=== PATIENT | male | born 1985 | race Caucasian/White ===

== ENCOUNTER 2019-11-07 16:16 | Emergency (ER) | payer SELFPAY ==
[2019-11-07 16:16] VITALS: BP 145/73; PULSE 109; RESP 18; TEMP 36.7; O2SAT 99; BMI 21.6
--- NOTE | 2019-11-07 16:30 | ED.DCSUM_ITS ---
History of Present Illness Chief Complaint: Dental Informant: Patient Onset: Days - 3 days Context: Gradual Onset Current Severity: Moderate Maximum Severity: Moderate Narrative: Patient presents with 3 days of left lower dental pain and 2 days of facial swelling. He states he believes his wisdom tooth is infected. No drainage or sour taste in his mouth. No fever or chills. Past Medical History - Allergies and Home Meds Allergies/Adverse Reactions: Allergies No Known Allergies Allergy (Verified 11/07/19 16:18) Primary Care Physician: Care Physician,No Primary [Primary Care Provider] - Past Medical History: None Smoking Status: Current every day smoker Review of Systems General: Denies: Chills, Fever Eyes: Denies: Visual changes - bilaterally ENT: Reports: - - Dental pain and facial swelling. Denies: Bilateral ear pain Cardiovascular: Denies: Chest pain Respiratory: Denies: Dyspnea, Cough Gastrointestinal: Denies: Abdominal pain, Nausea, Vomiting, Diarrhea Musculoskeletal: Denies: Extremity Pain Skin: Denies: Rash Neurological: Denies: Headache Hematologic: Denies: Easy bruising, Easy bleeding Allergy: Denies: Uticaria Physical Exam Vital Signs/Narrative: Vital Signs Temp Pulse Resp BP Pulse Ox 11/07/19 16:16 98.1 F 109 H 18 145/73 H 99 Inital Vital Signs reviewed: Yes General: Well nourished, Well developed Head: Normocephalic ENT: Moist mucous membranes, - - Mild left facial swelling along the mandible. No submandibular fullness. Intraoral examination reveals multiple dental caries along the left mandibular surface. He does have limited opening of his mouth, but no true trismus. Posterior pharynx exam is normal. Cardiovascular: Regular rate, Regular rhythm, No murmurs Respiratory: No distress, CTA bilaterally Abdomen: Soft, Nontender Skin: Normal color Neurological: Alert, Oriented x3 Psychological: Normal affect Diagnostic/Tx/Re-eval - Medical Decision Making Patient be treated with naproxen as well as Pen-Vee K. He is given a dental re ferral list. He is to follow-up with a dentist this week. ED Disposition - Plan for ED Patient: Disposition: Home or Assisted Living Diagnosis: Dental abscess Instructions: ED Abscess Antibiotic Treatment Only Prescriptions: Naproxen [Naprosyn] 500 mg PO BID PRN PRN #20 tab PRN Reason: Pain Score 4-10/10 Transmission Status: Pending to [facility] Penicillin V Potassium 500 mg PO 4X/DAY #40 tab Transmission Status: Pending to [facility] Additional Instructions: Dental list provided.
[2019-11-07] MEDS: Naproxen 500 MG Tablet PO (16:47)
[2019-11-07] MEDS: Penicillin Vk 250 MG Tablet 500 MG PO (16:47)
== END 2019-11-07 16:50 | disposition home or self-care (01) ==
LOC: ED 16:50
PROVIDERS: Emergency Provider Emergency Medicine
DX: K04.7 Periapical abscess without sinus (principal); F17.200 Nicotine dependence, unspecified, uncomplicated
CPT/HCPCS: 99283

== ENCOUNTER 2021-10-11 18:38 | Emergency (ER) | payer BC, SELFPAY ==
[2021-10-11 18:39] VITALS: BP 136/79; PULSE 82; RESP 14; TEMP 35.8; O2SAT 95; BMI 23.0
--- NOTE | 2021-10-11 18:58 | EX.ED.GUMALE ---
HPI History of Present Illness Chief Complaint: Male Pain/Injury Informant: patient Pain Onset: Weeks (2) Context: Gradual Onset Timing: Continuous Current Severity: Moderate Maximum Severity: Moderate Worsened by: nothing Relieved by: nothing but hasn't tried any medications Related History Sexually: Inactive (But was in the past) STD: No (No known history) Narrative Narrative: Patient states he has had spontaneous onset of left testicular/scrotal pain that started 2 weeks ago. Today the pain has been worse. He denies any injury. He denies any sexual intercourse recently. He does not have a PCP. He states several days ago he had a scant amount of a creamy urethral discharge but not since and he has had no issues urinating or hematuria. No fevers or chills or abdominal pain. He does not wear underwear so unknown if scrotal support has been helping his discomfort or not. PFSH PFSH Medical History no medical history no medical history Home Medications doxycycline monohydrate 100 mg PO BID #14 capsule 10/11/21 [Rx Last Taken Unknown] naproxen 500 mg PO BID PRN #14 tab 10/11/21 [Rx Last Taken Unknown] Allergy/AdvReac Type Severity Reaction Status Date / Time No Known Allergies Allergy Verified 10/11/21 18:39 Social History Smoking Status: Current every day smoker tobacco type: cigarettes ROS ROS ED Constitutional Constitutional ED: Denies chills or fever(s) Eyes Eyes: Denies change in vision or diplopia ENT ENT ED: Denies rhinorrhea or sore throat Cardiovascular Cardiovascular: Denies chest pain or palpitations Respiratory/Chest Respiratory/Chest: Denies cough or dyspnea Gastrointestinal Gastrointestinal: Denies abdominal pain, diarrhea, nausea or vomiting Genitourinary Genitourinary ED: Reports as per HPI and scrotal pain; Denies dysuria, hematuria, scrotal swelling or testicular swelling Musculoskeletal Musculoskeletal: Denies back pain or neck pain Integumentary Denies abscess or rash Neurologic Neurologic: Denies headache(s), paresthesias or weakness Psychiatric Psychiatric: Denies anxiety or suicidal thoughts EXAM Physical Exam Const Vital Signs: 10/11/21 18:39 Temperature 96.5 F L Temperature Source Temporal Pulse Rate 82 Respiratory Rate 14 Blood Pressure 136/79 H Blood Pressure Mean 98 Pulse Ox 95 Oxygen Delivery Method Room Air Positive well nourished and well developed General Appearance ED: well developed and NAD HEENT Reports moist mucous membranes normocephalic and atraumatic Eyes PERRL and EOMs intact bilaterally Neck full ROM and supple Resp normal respiratory effort and clear to auscultation bilaterally Cardio regular rate, regular rhythm and no murmurs GI non-tender and non-distended Auscultation: normoactive bowel sounds Palpation: soft Narrative: Scrotum normal appearing, no testicular tenderness or edema or deformity. Tender at the epididymis on the left, posterior aspect of the testicle, and proximal to this without any palpable varicocele. No palpable mass or hernia. Penis normal. No inguinal lymphadenopathy. Testes: Negative for testicular swelling Back/Spine no CVA tenderness General Back: other FROM Extremity normal to inspection General Extremety ED: Negative for edema, pulses abnormal or tenderness General Extremity: Negative for edema or pulses abnormal Neuro oriented x3, CN's II-XII intact bilaterally and no sensory deficits noted Sensorium / Orientation: awake and alert Motor Exam: strength 5/5 throughout Skin no rashes or lesions noted and no wounds MDM MDM MDM Narrative Medical decision making narrative: I suspect patient has epididymitis and will treat him empirically for it with doxycycline for 1 week. He was given initial doses of that and NSAID here. I sent off test for GC and chlamydia, the only reason is because he could have an indolent asymptomatic infection from a prior exposure and that could be causing this now. I think it is less likely. Discussed following up with urology if he does not get better since he does not have a PCP. His testicle is not edematous nor tender and I do not think he has to be ultrasound for torsion at this time since I think that is very unlikely. Discharge Plan Triage Chief Complaint: Male Pain/Injury ED Provider: Stevo Lange Dx/Rx/DC Orders Clinical Impression: Epididymitis, left Instructions: ED Epididymitis Prescriptions: New doxycycline monohydrate 100 MG capsule 100 mg PO BID Qty: 14 RF: 0 naproxen 500 MG tablet 500 mg PO BID PRN Qty: 14 RF: 0 Primary Care Provider: Care Physician,No Primary Referrals: Dominic Apple MD [STAFF PHYSICIAN] - 1 Week if not improving Kristy Valdez MD [STAFF PHYSICIAN] - (for primary care) Disposition Disposition: Home, Self Care
[2021-10-11] MEDS: Doxycycline 100 MG CAPSULE PO (19:03)
[2021-10-11] MEDS: Naproxen 250 MG Tablet 500 MG PO (19:03)
[2021-10-11 21:57] LABS: Chlamydia Trachomatis by PCR Negative (Negative); Neisserai gonorrhoeae by PCR Negative (Negative)
[2021-10-11 21:58] LABS: Probe Check PASS; Sample Adequacy Control PASS; Specimen Processing Control PASS
== END 2021-10-11 19:16 | disposition home or self-care (01) ==
LOC: ED 19:13
PROVIDERS: Emergency Provider Emergency Medicine; Visit Provider Emergency Medicine
DX: F17.210 Nicotine dependence, cigarettes, uncomplicated (principal); N45.1 Epididymitis
CPT/HCPCS: 87491; 87591; 99282

== ENCOUNTER 2024-08-25 10:18 | Emergency (ER) | payer SELFPAY ==
[2024-08-25 10:18] VITALS: BP 138/80; PULSE 76; RESP 14; TEMP 35.7; O2SAT 98; BMI 22.3
--- NOTE | 2024-08-25 10:41 | ED.VIS.LOWEX ---
HPI History of Present Illness HPI Narrative: 38-year-old male complaining of 5-day history of right knee discomfort and swelling. Denies any fall injury or trauma. 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 He denies any specific fall or trauma. No fever or redness. No history of gout. No prior knee surgery. No recent injury. He has had knee pain before. Is never had it evaluated. Is never had an MRI. Chief Complaint: Lower Extremity Injury Informant: patient Occured/Mechanism Mechanism/Context: No injury and No blunt trauma Onset/Context/Timing Onset: Days Context: Gradual Onset Timing: Continuous Quality of Pain: Sharp Current Severity: Moderate Maximum Severity: Moderate Associated Symptoms Associated Symptoms: Negative for Parasthesia, Weakness or Loss of Funtion Narrative Narrative: 38-year-old male right knee pain and swelling. Prior history. No prior surgery. No redness or fever. No recent trauma. No prior knee surgery. Prior similar symptoms: Yes Recent Illness/Hospitalization: No PFSH PFSH Medical History no medical history no medical history Home Medications ?Medication ?Instructions ?Recorded ?Last Taken ?Type doxycycline monohydrate 100 mg 100 mg PO BID #14 CAPSULES 10/11/21 Unknown Rx capsule naproxen 500 mg tablet 500 mg PO BID PRN #14 tabs 10/11/21 Unknown Rx Allergy/AdvReac Type Severity Reaction Status Date / Time No Known Allergies Allergy Verified 08/25/24 10:19 Social History Smoking Status: Current every day smoker tobacco type: cigarettes ROS ROS ED ROS Narrative Denies recent illness or fever. Constitutional Constitutional ED: Denies chills or fever(s) Eyes Eyes: Denies blurry vision ENT ENT ED: Denies ear pain Cardiovascular Cardiovascular: Denies chest pain or palpitations Respiratory/Chest Respiratory/Chest: Denies cough or dyspnea Gastrointestinal Gastrointestinal: Denies abdominal pain Genitourinary Genitourinary ED: Denies dysuria or hematuria Musculoskeletal Musculoskeletal: Denies arthralgias or back pain Integumentary Denies abscess or Abrasions Neurologic Neurologic: Denies headache(s) Psychiatric Psychiatric: Denies anxiety or depression Endocrine Endocrinology: Denies polydipsia Hematologic/Lymphatic Hematologic/Lymphatic: Denies easy bleeding or easy bruising Allergic/Immunologic Allergic/Immunologic ED: Denies mouth swelling or tongue swelling EXAM Physical Exam Narrative Exam Narrative: Well-appearing 38-year-old male. Vital signs stable afebrile. No acute distress. H EENT exam pupils round react light. Mytrex membranes. Neck nontender no lymphadenopathy. Lungs clear to auscultation bilaterally. Heart regular rhythm rate about 75 no murmur. Chest wall nontender. Abdomen soft nontender. Moving all 4 extremities. Neurovascularly intact. Right hip nontender nonswollen. No inguinal lymphadenopathy. No discoloration. Right knee mild swelling with obvious effusion. Able to do flexion extension. Can extend fully. Can lift heel and foot off the bed. Extensor mechanism intact. ACL and PCL intact. MCL and LCL are intact. No gross bony deformity. No redness no cellulitis no signs of septic joint. Dorsi plantarflexion of the right foot is intact. Calf is nontender. Both upper and left lower extremities otherwise are unremarkable. Patient is awake and alert. Const Vital Signs: 08/25/24 10:18 08/25/24 12:39 Temperature 96.2 F L 97.5 F L Temperature Source Temporal Pulse Rate 76 76 Respiratory Rate 14 14 Blood Pressure 138/80 H 125/70 H Blood Pressure Mean 99 88 Pulse Ox 98 98 Oxygen Delivery Method Room Air Positive well nourished and well developed; Negative for obese, cachectic, contractures or unkempt General Appearance ED: well developed and NAD; Negative for unkempt, cachectic or contractures Nutritional Appearance: Negative for cachectic or obese HEENT Reports moist mucous membranes normocephalic and atraumatic Eyes PERRL Neck full ROM and supple Thyroid: Negative for tender Chest Wall inspection of chest normal and palpation of chest normal Resp normal respiratory effort, no retractions and clear to auscultation bilaterally Cardio regular rate, regular rhythm, S1 normal heart sound, S2 normal heart sound and no murmurs Rate: Negative for bradycardia or tachycardic Rhythm: Negative for abnormal rhythm GI non-tender, non-distended and no masses Auscultation: normoactive bowel sounds Palpation: soft; Negative for tender, guarding or rebound tenderness present Back/Spine no CVA tenderness General Back: Negative for CVA tenderness or swelling Cervical Spine: Negative for cervical spine tenderness Thoracic Spine / Upper Back: Negative for thoracic spinal tenderness Lumbar Spine / Lower Back: Negative for lumbar spinal tenderness Extremity normal to inspection and full ROM Extremity Narrative: Except right knee mild swelling. Moderate effusion. Normal flexion extension. Ligaments are intact. No bony deformity. No cellulitis. No septic joint. No inguinal lymphadenopathy. Able to lift foot off the bed. Right foot normal strength neurovascularly intact. Normal sensation. General Extremety ED: Negative for cyanosis or edema General Extremity: Negative for cyanosis or edema Neuro oriented x3 and CN's II-XII intact bilaterally Sensorium / Orientation: alert, oriented to person, oriented to place and oriented to time Motor Exam: strength 5/5 throughout Psych mental status grossly normal Appearance: Negative for unkempt Skin no wounds Lesions: no lesions Rashes: no rashes MDM MDM MDM Narrative Medical decision making narrative: 38-year-old male with knee problems. No prior surgery. 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 Has had 5-day history of atraumatic knee pain without fever. He has an effusion. X-ray will be obtained. He and I will discuss other treatment options. History & Record Review Discussion w/independent historian: Patient Radiography Diagnostic Testing: Clinical Impression(s) from Imaging Studies Knee X-Ray 08/25/24 11:00 IMPRESSION: 1. No visible acute displaced fracture. 2. Nonspecific suspected joint effusion; correlate with exam. Reading Location: [facility] Right knee x-ray, 4 views, interpreted both by myself and the radiologist shows a right knee effusion. No fracture or dislocation. I did go over the x-ray with the patient. Discharge Plan Triage Chief Complaint: Lower Extremity Injury ED Provider: Eloy Cota Dx/Rx/DC Orders Clinical Impression: Effusion of knee joint right Instructions: ED Knee Effusion Prescriptions: No Action doxycycline monohydrate 100 MG capsule 100 mg PO BID Qty: 14 0RF naproxen 500 MG tablet 500 mg PO BID PRN Qty: 14 0RF Primary Care Provider: Care Physician,No Primary Referrals: Robi Pierce DO [Med Staff - Active Staff] - 1 Week if not improving Care Physician,No Primary [Primary Care Provider] - Activity Restrictions/Additional Instructions: The swelling of your right knee is called a knee effusion. Ice and elevate the knee to decrease pain and swelling. Next 2 days off work. Arrested. Take either Motrin or Advil or ibuprofen 2 to 3 pills 3 times a day to decrease pain and swelling. You can also use Tylenol which help with the pain but will not do any for swelling. If this does not get better call and follow-up with the orthopedic physician Dr. Singh Pierce for further evaluation. If need be they can drain the fluid off the knee. Injected with steroids to make it feel better. They can also consider getting an MRI to see if you have cartilage damage that is causing the swelling. If you would develop redness they are worsening pain or fever you need to return to have it further evaluated. At this time there is no signs of infection. Print Language: Italian Disposition Disposition: Home, Self Care
--- NOTE | 2024-08-25 11:00 | RAD_ITS ---
PROCEDURE: KNEE 4 OR MORE VIEWS (RADKN), 08/25/2024 REASON FOR EXAM: ATRAUMATIC KNEE PAIN TECHNIQUE: AP, lateral, AP tunnel, and sunrise views of the right knee were obtained. COMPARISON: None FINDINGS: Fracture/dislocation: None visible. Joint space(s): Relatively preserved. Soft tissues: Suspect a joint effusion. Foreign bodies: None visible. Bone mineralization: Grossly unremarkable. Few lateral femoral condylar bone islands. RAD/Knee 4 or More Views IMPRESSION: 1. No visible acute displaced fracture. 2. Nonspecific suspected joint effusion; correlate with exam. Reading Location: [id number]
[2024-08-25 12:39] VITALS: BP 125/70; PULSE 76; RESP 14; TEMP 36.4; O2SAT 98
== END 2024-08-25 12:44 | disposition home or self-care (01) ==
PROVIDERS: Emergency Provider Emergency Medicine; Visit Provider Emergency Medicine
DX: M25.461 Effusion, right knee (principal); F17.210 Nicotine dependence, cigarettes, uncomplicated
CPT/HCPCS: 73564; 99282